=== PATIENT | male | born 1965 | race Caucasian/White ===

== ENCOUNTER 2024-09-18 00:54 | Day surgery (SDC) | payer OTHER, SELFPAY ==
--- NOTE | 2024-09-17 14:12 | P.PNAN_ITS ---
Anes - Initial Pre Proc Eval Procedure: Operation Date: 09/18/24 10:00 Proposed Procedures p Screening Colonoscopy - Wang Jenkins MD Date/Time: 09/17/24 14:12 Surgeon: Wang Jenkins MD Pre Op Diagnosis: Screening Patient Data Age: 58 Gender: M Height: Weight: Allergies Allergy/AdvReac Type Severity Reaction Status Date / Time No Known Allergies Allergy Verified 09/18/24 08:44 Home Medications ?Medication ?Instructions ?Recorded ?Confirmed ?Type rosuvastatin 10 mg tablet 10 mg PO DAILY 09/11/24 09/18/24 History Patient hx anesthesia problems: none Family hx anesthesia problems: none Results Review: All pre-operative results and documents have been reviewed as part of the pre- operative evaluation. [facility] Past Medical History Medical History (Updated 09/17/24 @ 14:12 by Heriberto Gilmore DO) Hyperlipidemia Social History Social History Living arrangements: with family Spiritual care concerns: No Anes - Eval Final PreProcedure Day of Procedure 09/17/24 14:12 Results Review: All pre-operative results and documents have been reviewed as part of the pre- operative evaluation. Informed Consent: The patient's anesthetic plan and its attendant risks and benefits were discussed with the patient/family/POA. Questions were solicited and answers provided to the satisfaction of the patient/family/POA.
--- OUTSIDE RECORDS SUMMARY | 2024-09-18 00:58 | XMS_ITS | Data Portability ---
Author Organization [facility] Address [address] [place] [address] Care Team Providers Care Search Consultant Name Role Phone YVONNE GARCIA Primary Care Provider Assessment Encounter Date Assessment Date Assessment LastModified by Organization Details LastModified Time 12/12/2023 12/12/2023 signs and symptoms of strangulation of hernia discussed he does not want to see surgeon. Obesity healthy lifestyle care instructions. Medication to help lose weight discussed he is not interested we will obtain blood work I will see him back in 6 months get records from old clinic. Not available 12/12/2023 10:23:57 06/11/2024 06/11/2024 colonoscopies last blood work reviewed chest x-ray reviewed losing weight discussed healthy lifestyle care instructions follow up with me in 4 months Not available 06/15/2024 16:05:21 Plan of Treatment Reminders Order Date Submit Date Provider Last Modified By Organization Details Last Modified Time Details Appointments ANY 15 2024 10:00A M Yvonne Garcia MD Not available Not available Not available Lab HbA1c (hemoglob in A1c), blood 2023 024 [facility], [address], [place], [address], 12/13/2023 13:13:10 lipid panel, serum 2023 024 [facility], [address], [place], [address], 12/13/2023 13:13:08 CMP, serum or plasma 2023 024 [facility], [address], [place], [address], 12/13/2023 13:13:09 CBC w/ auto diff 2023 024 [facility], [address], [place], [address], 12/13/2023 13:13:10 Referral None recorded. Procedures colonosco py screening (PROC) 2024 025 [facility], [address], [id number], [place], [address], 09/11/2024 11:00:21 Surgeries None recorded. Imaging None recorded. Medication Orders None recorded. Patient TargetsNo targets recorded. Patient Instructions Encounter Date Encounter Id Patient Instructions Last Modified By Organization Details Last Modified Time 12/12/2023 [id number] A healthy lifestyle: care instructions [email or web address] Not available 12/12/2023 10:56:30 06/11/2024 [id number] A healthy lifestyle: care instructions [email or web address] Not available 06/11/2024 15:05:24 Reason for Referral None Reported. Results Created Date Observation Date Name Description Value Unit Range Abnormal Flag Note LastModifiedBy Organization Detail LastModifiedTime 12/12/1912/13/2023 LIPID PANEL cholesterol, total 123 mg/dL 100-19 9 Not Available [facility] ([facility]) [address], [place], [address], 12/13/2023 13:13:08 12/12/1912/13/2023 LIPID PANEL triglyceride s 92 mg/dL 0-149 Not Available [facility] ([facility]) [address] [facility], [place], [address], 12/13/2023 13:13:08 12/12/19 24 12/13/2023 LIPID PANEL HDL cholesterol 45 mg/dL >39 Not Available [facility] ([facility]) [address] [facility], [place], [address], 12/13/2023 13:13:08 12/12/19 24 12/13/2023 LIPID PANEL VLDL cholesterol day 18 mg/dL 5-40 Not Available [facility] ([facility]) [address] [place], [address], 12/13/2023 13:13:08 12/12/19 24 12/13/2023 LIPID PANEL LDL chol calc ([facility]) 60 mg/dL 0-99 Not Available [facility] ([facility]) [address] [place], [address], 12/13/2023 13:13:08 12/12/19 24 12/13/2023 COMP. METAB OLIC PANEL (14) glucose 93 mg/dL 70-99 Not Available [facility] ([facility]) [address] [place], [address], 12/13/2023 13:13:09 12/12/19 24 12/13/2023 COMP. METAB OLIC PANEL (14) BUN 15 mg/dL 6-24 Not Available [facility] ([facility]) [address] [place], [address], 12/13/2023 13:13:09 12/12/19 24 12/13/2023 COMP. METAB OLIC PANEL (14) creatinine 0.97 mg/dL 0.76-1 .27 Not Available [facility] ([facility]) [address] [place], [address], 12/13/2023 13:13:09 12/12/19 24 12/13/2023 COMP. METAB OLIC PANEL (14) eGFR 90 mL/mi n/1.7 3 >59 Not Available [facility] ([facility]) [address] [place], [address], 12/13/2023 13:13:09 12/12/19 24 12/13/2023 COMP. METAB OLIC PANEL (14) BUN/creatini ne ratio 15 9-20 Not Available [facility] ([facility]) [address] [place] [place], [address], 12/13/2023 13:13:09 12/12/19 24 12/13/2023 COMP. METAB OLIC PANEL (14) sodium 142 mmol/ L 134-14 4 Not Available [facility] ([facility]) [address] [place] [place], [address], 12/13/2023 13:13:09 12/12/19 24 12/13/2023 COMP. METAB OLIC PANEL (14) potassium 4.3 mmol/ L 3.5-5. 2 Not Available [facility] ([facility]) [address] [place] [place], [address], 12/13/2023 13:13:09 12/12/19 24 12/13/2023 COMP. METAB OLIC PANEL (14) chloride 103 mmol/ L 96-106 Not Available [facility] ([facility]) [address] [facility] [place] [place], [address], 12/13/2023 13:13:09 12/12/19 24 12/13/2023 COMP. METAB OLIC PANEL (14) carbon dioxide, total 24 mmol/ L 20-29 Not Available [facility] ([facility]) [address] [facility] [place] [place], [address], 12/13/2023 13:13:09 12/12/19 24 12/13/2023 COMP. METAB OLIC PANEL (14) calcium 9.2 mg/dL 8.7-10 .2 Not Available [facility] ([facility]) [address] [facility] [place] [place], [address], 12/13/2023 13:13:09 12/12/19 24 12/13/2023 COMP. METAB OLIC PANEL (14) protein, total 7.4 g/dL 6.0-8. 5 Not Available [facility] ([facility]) [address] [facility] [place] [place], [address], 12/13/2023 13:13:09 12/12/19 24 12/13/2023 COMP. METAB OLIC PANEL (14) albumin 4.8 g/dL 3.8-4. 9 Not Available [facility] ([facility]) [address], [place], [address], 12/13/2023 13:13:09 12/12/19 24 12/13/2023 COMP. METAB OLIC PANEL (14) globulin, total 2.6 g/dL 1.5-4. 5 Not Available [facility] ([facility]) [address], [place], [address], 12/13/2023 13:13:09 12/12/19 24 12/13/2023 COMP. METAB OLIC PANEL (14) bilirubin, total 0.8 mg/dL 0.0-1. 2 Not Available [facility] ([facility]) [address], [place], [address], 12/13/2023 13:13:09 12/12/19 24 12/13/2023 COMP. METAB OLIC PANEL (14) alkaline phosphatase 89 IU/L 44-121 Not Available [facility] ([facility]) [address], [place], [address], 12/13/2023 13:13:09 12/12/19 24 12/13/2023 COMP. METAB OLIC PANEL (14) AST (SGOT) 18 IU/L 0-40 Not Available [facility] ([facility]) [address], [place], [address], 12/13/2023 13:13:09 12/12/19 24 12/13/2023 COMP. METAB OLIC PANEL (14) ALT (SGPT) 17 IU/L 0-44 Not Available [facility] ([facility]) [address], [place], [address], 12/13/2023 13:13:09 12/12/1912/13/2023 HEMOG LOBIN A1C hemoglobin A1C 5.8 % 4.8-5. 6 above high normal Predi abete s: 5.7 - 6.4 Diabe carlos manuel: >6.4 Glyce arcadio contr ol for adult s with diabe carlos manuel: <7.0 Not Available [facility] ([facility]) [address] [facility] [facility], [place], [address], 12/13/2023 13:13:09 12/12/1912/13/2023 CBC WITH DIFFE RENTI AL/PL ATELE T WBC 5.5 x10e3 /uL 3.4-10 .8 Not Available [facility] ([facility]) [address] [facility], [place], [address], 12/13/2023 13:13:10 12/12/1912/13/2023 CBC WITH DIFFE RENTI AL/PL ATELE T RBC 4.83 x10e6 /uL 4.14-5 .80 Not Available [facility] ([facility]) [address] [facility] [facility], [place], [address], 12/13/2023 13:13:10 12/12/19 24 12/13/2023 CBC WITH DIFFE RENTI AL/PL ATELE T hemoglobin 15.0 g/dL 13.0-1 7.7 Not Available [facility] ([facility]) [address] [facility] [facility], [place], [address], 12/13/2023 13:13:10 12/12/1912/13/2023 CBC WITH DIFFE RENTI AL/PL ATELE T hematocrit 45.6 % 37.5-5 1.0 Not Available [facility] ([facility]) [address] [place], [address], 12/13/2023 13:13:10 12/12/19 24 12/13/2023 CBC WITH DIFFE RENTI AL/PL ATELE T MCV 94 fL 79-97 Not Available [facility] ([facility]) [address] [facility], [place], [address], 12/13/2023 13:13:10 12/12/1912/13/2023 CBC WITH DIFFE RENTI AL/PL ATELE T MCH 31.1 pg 26.6-3 3.0 Not Available [facility] ([facility]) [address], [place], [address], 12/13/2023 13:13:10 12/12/1912/13/2023 CBC WITH DIFFE RENTI AL/PL ATELE T MCHC 32.9 g/dL 31.5-3 5.7 Not Available [facility] ([facility]) [address] [facility], [place], [address], 12/13/2023 13:13:10 12/12/1912/13/2023 CBC WITH DIFFE RENTI AL/PL ATELE T RDW 13.0 % 11.6-1 5.4 Not Available [facility] ([facility]) [address] [facility], [place], [address], 12/13/2023 13:13:10 12/12/19 24 12/13/2023 CBC WITH DIFFE RENTI AL/PL ATELE T platelets 173 x10e3 /uL 150-45 0 Not Available [facility] ([facility]) [address] [place], [address], 12/13/2023 13:13:10 12/12/1912/13/2023 CBC WITH DIFFE RENTI AL/PL ATELE T neutrophils 73 % notest ab. Not Available [facility] ([facility]) [address] [place], [address], 12/13/2023 13:13:10 12/12/19 24 12/13/2023 CBC WITH DIFFE RENTI AL/PL ATELE T lymphs 18 % notest ab. Not Available [facility] ([facility]) [address] [facility] [place], [address], 12/13/2023 13:13:10 12/12/19 24 12/13/2023 CBC WITH DIFFE RENTI AL/PL ATELE T monocytes 8 % notest ab. Not Available [facility] ([facility]) [address] [facility], [place], [address], 12/13/2023 13:13:10 12/12/1912/13/2023 CBC WITH DIFFE RENTI AL/PL ATELE T eos 1 % notest ab. Not Available [facility] ([facility]) [address] [facility], [place], [address], 12/13/2023 13:13:10 12/12/1912/13/2023 CBC WITH DIFFE RENTI AL/PL ATELE T basos 0 % notest ab. Not Available [facility] ([facility]) [address] [place], [address], 12/13/2023 13:13:10 12/12/19 24 12/13/2023 CBC WITH DIFFE RENTI AL/PL ATELE T neutrophils (absolute) 4.0 x10e3 /uL 1.4-7. 0 Not Available [facility] ([facility]) [address] [place], [address], 12/13/2023 13:13:10 12/12/1912/13/2023 CBC WITH DIFFE RENTI AL/PL ATELE T lymphs (absolute) 1.0 x10e3 /uL 0.7-3. 1 Not Available [facility] ([facility]) [address] [place], [address], 12/13/2023 13:13:10 12/12/19 24 12/13/2023 CBC WITH DIFFE RENTI AL/PL ATELE T monocytes(ab solute) 0.4 x10e3 /uL 0.1-0. 9 Not Available [facility] ([facility]) [address] [facility] [place], [address], 12/13/2023 13:13:10 12/12/19 24 12/13/2023 CBC WITH DIFFE RENTI AL/PL ATELE T eos (absolute) 0.1 x10e3 /uL 0.0-0. 4 Not Available [facility] ([facility]) [address] [facility] [address], [place], [address], 12/13/2023 13:13:10 12/12/19 24 12/13/2023 CBC WITH DIFFE RENTI AL/PL ATELE T baso (absolute) 0.0 x10e3 /uL 0.0-0. 2 Not Available [facility] ([facility]) [address] [facility], [place], [address], 12/13/2023 13:13:10 12/12/1912/13/2023 CBC WITH DIFFE RENTI AL/PL ATELE T immature granulocytes 0 % notest ab. Not Available [facility] ([facility]) [address] [facility], [place], [address], 12/13/2023 13:13:10 12/12/19 24 12/13/2023 CBC WITH DIFFE RENTI AL/PL ATELE T immature grans (abs) 0.0 x10e3 /uL 0.0-0. 1 Not Available [facility] ([facility]) [address] [facility] [facility], [place], [address], 12/13/2023 13:13:10 04/24/20 24 04/24/2024 XR, chest , 2 view No observ ation record ed. [email or web address] [facility] [address] [place], [address], 06/15/2024 16:04:42 Result Notes None recorded. Problems Name Problem SNOMED Code Status Onset Date Resolution Date Notes Provider Name and Address Organization Details Recorded Time Obesity 929920437 Active 2023 Rain Pack MA [facility], [place] - [facility] 07/24/202 4 10:21:13 Dyslipidemia 331770500 Active 2024 Yvonne Garcia MD Attn: Guadalupe mtz,[address] [facility], [place], [address], [facility] 5 16:03:31 Umbilical hernia 494419798 Active 2024 Yvonne Garcia MD Attn: Guadalupe mtz,[address], [place], [address], [facility] - [facility] 5 16:03:37 Problem Notes None recorded. Procedures Surgical History None recorded. Imaging Results Imaging Date Name Status LastModified by Organiz ation Details LastModified Time 04/24/2024 XR, chest, 2 view completed [address], [address], 06/15/2024 16:04:42 Procedure Notes None recorded. Medical Equipment None Reported. Allergies No known drug allergies Medications Name Sig Start Date Stop Date Status Note LastModified by Organization Details LastModified Time benzonatate 200 mg capsule TAKE 1 CAPSULE BY MOUTH THREE TIMES DAILY FOR 10 DAYS 06/11 completed Not Available Not Available Not Available rosuvastatin 10 mg tablet TAKE 1 TABLET BY MOUTH ONCE DAILY active Not Available Not Available No t Available Vitals Date Recorded Body height Body mass index (BMI) Body weight Heart rate Oxygen saturation Oxygen saturation in Arterial blood by Pulse oximetry Systolic blood pressure Diastolic blood pressure Provider Name and Address Organization Details Last Updated DateTime 4 162.56 cm 37.1 kg/m2 23386.6 7 g 80 /min 98 % 98 % 128 mm[Hg] 72 mm[Hg] Cheryl Gomez MA [facility] 4 10:07:07 Date Recorded Body height Body mass index (BMI) Body weight Heart rate Oxygen saturation Oxygen saturation in Arterial blood by Pulse oximetry Systolic blood pressure Diastolic blood pressure Provider Name and Address Organization Details Last Updated DateTime 5 162.56 cm 36.2 kg/m2 87926.6 3 g 86 /min 99 % 99 % 130 mm[Hg] 89 mm[Hg] China Read MA [facility] 11:54:46 Social History Question Answer Notes LastModified by Organizat ion Details LastModified Time Tobacco Smoking Status Never Smoker Cheryl Gomez MA [facility], [place] - [facility] 12/12/2023 10:03:51 Do You Have An Advance Directive? No Information n ot available 12/12/2023 What Is Your Level Of Alcohol Consumption? None Information not available 12/12/2023 Are You Blind Or Do You Have Difficulty Seeing? Yes Glasses Information n ot available 12/12/2023 What Is Your Level Of Caffeine Consumption? Heavy Information not available 12/12/2023 In The 14 Days Before Symptom Onset, Have You Had Close Contact With A Laboratory-confirm ed COVID-19 While That Case Was Ill? No Information n ot available 12/12/2023 In The 14 Days Before Symptom Onset, Have You Had Close Contact With A Person Who Is Under Investigation For COVID-19 While That Person Was Ill? No Information not available 12/12/2023 Have You Been To An Area Known To Be High Risk For COVID-19? No Information not available 12/12/2023 Are You Currently Employed? No Information not available 12/12/2023 Are You Deaf Or Do You Have Serious Difficulty Hearing? No Information not available 12/12/2023 What Type Of Diet Are You Following? REGULAR Information n ot available 12/12/2023 Are There Any Guns Present In Your Home? No Information not available 12/12/2023 What Was The Date Of Your Most Recent Tobacco Screening? 06/11/2024 [email or web address] Information not available 06/11/2024 What Is Your Relationship Status? Unknown Information not available 12/12/2023 Do You Use Your Seat Belt Or Car Seat Routinely? Yes Information not available 12/12/2023 Do You Have Smoke And Carbon Monoxide Detectors In Your Home? Yes Information not available 12/12/2023 Do You Feel Stressed (tense, Restless, Nervous, Or Anxious, Or Unable To Sleep At Night)? [id number] Information not available 12/12/2023 Do You Use Any Illicit Or Recreational Drugs? No Information not available 12/12/2023 Do You Use Sunscreen Routinely? Yes Information not available 12/12/2023 Has Tobacco Cessation Counseling Been Provided? No Information not available 12/12/2023 Do You Or Have You Ever Used Any Other Forms Of Tobacco Or Nicotine? No Information not available 12/12/2023 Sex: Male Functional Status Question Answer Note LastModified by Organization D etails LastModified Time Are you able to care for yourself? Yes Information n ot available 12/12/2023 What is your exercise level? None Information not available 12/12/2023 Mental Status None recorded. Family History Nothing Reported. Medical History Condition Response High Cholesterol Y Immunizations Vaccine Type Date Status Note Provider Nam e and Address Organization Details Recorded Time COVID-19, mRNA, LNP-S, PF, 100 mcg/0.5mL dose or 50 mcg/0.25mL dose 2 completed MARIBETH Gupta, [place] - [facility] 12/12/2023 10:21:20 COVID-19, mRNA, LNP-S, PF, 100 mcg/0.5mL dose or 50 mcg/0.25mL dose 1 completed MARIBETH Gu[place], [place] - [facility] 12/12/2023 10:21:20 COVID-19, mRNA, LNP-S, PF, 100 mcg/0.5mL dose or 50 mcg/0.25mL dose 1 completed MARIBETH Gu[place], [place] [facility] 12/12/2023 10:21:20 Influenza, split virus, trivalent, preservative 4 completed MARIBETH Gu[place] [facility] 12/12/2023 10:21:20 Influenza, split virus, quadrivalent, PF 6 completed MARIBETH Gupta, [place] [facility] 12/12/2023 10:21:20 Past Encounters Encounter ID Performer Location Encounter Start Date Encounter Closed Date Diagnosis/Indication Diagnosis SNOMED-CT Code Diagnosis ICD10 Code Diagnosis Note [id number] Yvonne Garcia MD [facility] ([facility]ult [facility]) [address] [place] [address] 12/12/2023 09:55:06 12/12/2023 10:18:29 Obesity 296029682 E66.8 Hyperlipidemia 43466445 E78.5 Diabetes m ellitus screening 147352425 Z13.1 Reducible umbilical hernia 157786630 K42.9 [id number] Yvonne Garcia MD [facility] ([facility]ult [facility]) [address] [place] [address] 06/11/2024 11:34:23 06/11/2024 12:20:10 Body mass index 30+ - obesity 897551083 Z68.36 Obesity 542535467 E66.9 Screening for malignant neoplasm of colon 446191562 Z12.11 Dyslipidemia 851766760 E 78.5 Umbilical hernia 1363988 07 K42.9 Health Concerns Section Related Observation LastModified by Organization Detai ls LastModified Time None Recorded Concern Status LastModified by Organization Details LastModified Time None Recorded Advance Directives Directive N: Payers Encounter Date Sequence Insurance Name Policy Number Policy Powell Covered Member ID Powell Member ID Guarantor Name 12/12/2023 1 *SELF PAY* Da annette Ector Kline 12/12/2023 1 [facility] (MEDICARE - MEDICAID REPLACEMENT [facility]) [id number] Eric Mtz Kline [id number] Eric Barney Kline 06/11/2024 1 [facility] (MEDICARE - MEDICAID REPLACEMENT [facility]) [id number] Eric Jim Kline [id number] Eric Barney Kline Notes Date Note Type Note Provider Name and Address Organization Details Recorded Time 12/12/2023 text/html follow up of med ical problems 1. Obesity trouble losing weight we have talked about some agents to lose weight GLP 1 agents and he is not interested at this time. Hyperlipidemia taking rosuvastatin trying to follow a low-fat diet. Says he is up-to-date on colonoscopies. Umbilical hernia nontender no problems Yvonne Garcia MD Attn: Accounting,[address] [facility], [place], [address], [facility] 01/05/2024 13:00:43 06/11/2024 text/html dyslipidemia he was taking his rosuvastatin with no side effects. Umbilical hernia no worse nontender. Obesity needs to focus on losing some weight Yvonne Garcia MD Attn: Accounting,[address] [facility], [place], [address], [facility] 06/15/2024 16:05:48
--- OUTSIDE RECORDS SUMMARY | 2024-09-18 00:58 | XMS_ITS | Data Portability ---
Author Organization [facility] [employer], Main Office Address [address] [place] [address] Care Team Providers Care Access Analyst Name Role Phone YVONNE GARCIA Primary Care Provider [phone] Assessment Encounter Date Assessment Date Assessment LastModified by Organization Details LastModified Time 11/27/2022 11/27/2022 mawv portion completed by Daphne Cadet RN under supervision of Dr Garcia Immunizations and screenings ordered provided were patient agreeable dyslipidemia blood work and rosuvastatin obesity consider agent umbilical hernia signs and symptoms of strangulation discussed see me in 6 months. [email or web address] Not available 11/27/2022 14:46:07 05/28/2023 05/28/2023 Will try to get him in [facility] 1 agent does not want to do anything about the umbilical hernia yet blood work ordered follow-up 4 months Not available 05/28/2023 14:00:22 Plan of Treatment Reminders Order Date Submit Date Provider Last Modified By Organization Details Last Modified Time Details Appointments None recorded. Lab TSH, serum or plasma 2023 [facility] (Lab), [address] [place], [address], 17:26:49 T4, free, serum 2023 024 [facility] (Lab), [address] [place], [address], 4 17:26:34 T3, free, serum or plasma 2023 024 [facility] (Lab), [address] [place], [address], 4 17:26:39 CMP, serum or plasma 2023 024 [facility] (Lab), [address] [place], [address], 4 17:20:14 lipid panel, serum 2023 024 [facility] (Lab), [address] [place], [address], 4 17:20:23 CBC w/ auto diff 2023 024 [facility] (Lab), [address] [place], [address], 4 16:12:31 PSA, serum or plasma 2022 023 [facility] (Lab), [address] [place], [address], 4 21:12:36 lipid panel, serum 2022 023 [facility] (Lab), [address] [place], [address], 3 17:40:29 CMP, serum or plasma 2022 023 [facility] (Lab), [address] [place], [address], 3 17:40:35 Referral None recorded. Procedures None recorded. Surgeries None recorded. Imaging None recorded. Medication Orders Wegovy 0.25 mg/0.5 mL subcutaneou s pen injector 2023 024 [id number] [id number], [id number] [facility] [place], [place], [id number], 4 13:10:59 Patient TargetsNo targets recorded. Patient Instructions Encounter Date Encounter Id Patient Instructions Last Modified By Organization Details Last Modified Time 11/27/2022 [id number] dementia rating scale-2* [id number] Not available 11/27/2022 14:44:35 alcohol misuse* Not available 11/27/2022 14:44:35 depression screening* Not available 11/27/2022 14:44:35 multi-dimensiona l health assessment questionnaire* Not available 11/27/2022 14:44:35 advance directiv es: care instructions Not available 11/27/2022 14:44:35 Personalized Hea lth Plan and Screening Recommendations Advance Directives - Do you have one? No Advance Directives - Do we have your advance directive on file in your health record? Primary Prevention/Interven tion (prevents or decreases the chance of common diseases from occurring) Smoking Risk: Non Smoker Alcohol Misuse Screening: Negative Weight: Appropriate Overwei ght continue your current weight loss efforts try to lose 5% of your body weight try to lose 10% of your body weight try to lose 15% of your body weight Physical activity: Appropriate physical activity minimum of 10-20 minutes of activity that causes mild breathlessness/day minimum of 20-30 minutes activity that causes mild breathlessness/day Nutrition: Good Average Refer to attached handout Heart-Healthy Diet: After Your Visit Fall Risk (screened today): Low Refer to attached handout Preventing Falls: After your Visit Vaccines Pneumococcal: Influenza: Your next one in the fall of this year Chronic Disease Risks Stroke: Low Risk I have no recommendations Heart Attack: Low risk Intermediate Risk I have no recommendations Act donnie diagnosis, Continue current treatment plan Clogging of the Arteries: Low risk Intermediate Risk I have no recommendations Act donnie diagnosis, Continue current treatment plan Diabetes: Low Risk I have no recommendations Secondary Prevention/Interven tion (detects treatable diseases before they may cause symptoms, disability, or ) Prostate Cancer Screening: No digital rectal exam screening necessary Colon Cancer Screening: Colonoscopy Date Screening Last Performed: Eye Disease Screening: Dementia Risk: Low I have no recommendations Depression Screening: Negative [email or web address] Not available 11/27/2022 14:30:15 Reason for Referral None Reported. Results Created Date Observation Date Name Description Value Unit Range Abnormal Flag Note LastModifiedBy Organization Detail LastModifiedTime 05/02/20 21 05/02/2021 LIPID PANEL cholesterol 129 mg/dL 140-19 9 low NIH CHELI NSUS RECOM MENDA TION FOR BALDEMAR STERO L: ADULT CHILD LOW RISK: <200 <170 BORDE RLINE : <200- 239 ----- HIGH RISK: >240 >200 Not Available [facility] (Lab) [address] [place], [address], 05/02/2021 14:44:32 05/02/20 21 05/02/2021 LIPID PANEL triglyceride s 108 mg/dL 0-150 NIH CHELI NSUS REPOR T RECOM MENDA TION FOR TRIGL YCERI JUAQUIN: ADULT CHILD LOW RISK: <150 ----- BODER LINE: 150-1 99 ----- HIGH RISK: >200 ----- Not Available [facility] (Lab) [address] [place], [address], 05/02/2021 14:44:32 05/02/20 21 05/02/2021 LIPID PANEL HDL cholesterol 49 mg/dL 40- Not Available [facility] (Lab) [address] [place], [address], 05/02/2021 14:44:32 05/02/20 21 05/02/2021 LIPID PANEL LDL cholesterol, calculated 58 mg/dL 0-130 NIH CHELI NSUS REPOR T RECOM MENDA TIONS FOR LDL: ADULT CHILD LOW RISK <130 <110 (OPTI MAL LDL) <100 ----- BORDE RLINE : 130-1 59 ----- HIGH RISK: >160 >130 A TRIGL YCERI DE RESUL T >400 INVAL IDATE S THE CALCU LATIO N FOR LDL FRACT IONAT ION - THE LDL RESUL T WILL NOT BE REPOR AMARILYS. Not Available [facility] (Lab) [address] [place], [address], 05/02/2021 14:44:32 05/02/20 21 05/02/2021 COMPR EHENS DONNIE METAB OLIC PANEL sodium 139 mmol/ L 137-14 5 Not Available [facility] (Lab) [address] [place], [address], 05/02/2021 14:44:25 05/02/20 21 05/02/2021 COMPR EHENS DONNIE METAB OLIC PANEL potassium 4.5 mmol/ L 3.5-5. 1 Not Available [facility] (Lab) [address] [place], [address], 05/02/2021 14:44:25 05/02/20 21 05/02/2021 COMPR EHENS DONNIE METAB OLIC PANEL chloride 105 mmol/ L 98-107 Not Available [facility] (Lab) [address] [place], [address], 05/02/2021 14:44:25 05/02/20 21 05/02/2021 COMPR EHENS DONNIE METAB OLIC PANEL carbon dioxide 29 mmol/ L 22-30 Not Available [facility] (Lab) [address] [place], [address], 05/02/2021 14:44:25 05/02/20 21 05/02/2021 COMPR EHENS DONNIE METAB OLIC PANEL agap 9.5 mmol/ L 14-22 low Not Available [facility] (Lab) [address] [place], [address], 05/02/2021 14:44:25 05/02/20 21 05/02/2021 COMPR EHENS DONNIE METAB OLIC PANEL glucose 102 mg/dL 70-99 high Not Available [facility] (Lab) [address] [place], [address], 05/02/2021 14:44:25 05/02/20 21 05/02/2021 COMPR EHENS DONNIE METAB OLIC PANEL BUN 14 mg/dL 8-19 Not Available [facility] (Lab) [address] [place], [address], 05/02/2021 14:44:25 05/02/20 21 05/02/2021 COMPR EHENS DONNIE METAB OLIC PANEL creatinine 0.88 mg/dL 0.66-1 .25 Not Available [facility] (Lab) [address] [place], [address], 05/02/2021 14:44:25 05/02/20 21 05/02/2021 COMPR EHENS DONNIE METAB OLIC PANEL GFR >60 Refer ence Range : [place] GFR Healt hy Adult : >60 mL/mi n/1.7 3 m2 Chron ic Kidne y Disea se: 15-60 mL/mi n/1.7 3 m2 Kidne y Failu re: <15/m L/min /1.73 m2 www.n iddk. [facility].g ov The MDRD study equat ion has not been valid ated in child areli <18 years of age; pregn ant women ; the elder ly >85 years of age; or in some racia l or ethni c subgr oups, such as Hisok nics. Outsi de the valid ated lizzy eters , estim ated GFR is less accur ate, requi ring clini day judgm ent on a case- by-ca se basis . Clini day inter preta tion for other races and ages must be made by the clini coni. The MDRD study equat ion has not been valid ated for the evalu ation of serum creat inine relat ed to nutri adriana l statu s or medic ation usage . For perso ns <18 years of age, a pedia tric GFR calcu lator is avail able on the F websi te: https ://ww w.kid milton.o rg/pr ofess ional s/kdo qi/gf r_cal culat or Not Available [facility] (Lab) [address] [place], [address], 05/02/2021 14:44:25 05/02/20 21 05/02/2021 COMPR EHENS DONNIE METAB OLIC PANEL alkaline phosphatase 84 U/L 38-126 Not Available [facility] (Lab) [address] [place], [address], 05/02/2021 14:44:25 05/02/20 21 05/02/2021 COMPR EHENS DONNIE METAB OLIC PANEL alanine aminotransfe rase 21 U/L 0-50 Not Available [facility] (Lab) [address] [place], [address], 05/02/2021 14:44:25 05/02/20 21 05/02/2021 COMPR EHENS DONNIE METAB OLIC PANEL aspartate aminotransfe rase 27 U/L 15-46 Not Available [facility] (Lab) [address] [place], [address], 05/02/2021 14:44:25 05/02/20 21 05/02/2021 COMPR EHENS DONNIE METAB OLIC PANEL bilirubin, total 0.80 mg/dL 0.20-1 .30 Not Available [facility] (Lab) [address] [place], [address], 05/02/2021 14:44:25 05/02/20 21 05/02/2021 COMPR EHENS DONNIE METAB OLIC PANEL calcium 8.7 mg/dL 8.4-10 .2 Not Available [facility] (Lab) [address] [place], [address], 05/02/2021 14:44:25 05/02/20 21 05/02/2021 COMPR EHENS DONNIE METAB OLIC PANEL total protein 6.9 g/dL 6.3-8. 2 Not Available [facility] (Lab) [address] [place], [address], 05/02/2021 14:44:25 05/02/20 21 05/02/2021 COMPR EHENS DONNIE METAB OLIC PANEL albumin 4.4 g/dL 3.4-5. 0 Not Available [facility] (Lab) [address] [place], [address], 05/02/2021 14:44:25 05/02/20 21 05/02/2021 COMPR EHENS DONNIE METAB OLIC PANEL globulin 2.5 g/dL 2.6-4. 2 low Not Available [facility] (Lab) [address] [place], [address], 05/02/2021 14:44:25 05/02/20 21 05/02/2021 COMPR EHENS DONNIE METAB OLIC PANEL A/G ratio 1.8 ratio 1.0-2. 0 Not Available [facility] (Lab) [address] [place], [address], 05/02/2021 14:44:25 05/02/20 21 05/02/2021 CBC/C OMPLE TE BLD COUNT W/DIF F white blood cells 5.5 x10'3 /uL 4.2-10 .8 Not Available [facility] (Lab) [address] [place], [address], 05/02/2021 14:36:51 05/02/20 21 05/02/2021 CBC/C OMPLE TE BLD COUNT W/DIF F red blood cells 5.10 x10'6 /uL 4.10-5 .80 Not Available [facility] (Lab) [address] [place], [address], 05/02/2021 14:36:51 05/02/20 21 05/02/2021 CBC/C OMPLE TE BLD COUNT W/DIF F hemoglobin 15.7 g/dL 13.2-1 7.0 Not Available [facility] (Lab) [address] [place], [address], 05/02/2021 14:36:51 05/02/20 21 05/02/2021 CBC/C OMPLE TE BLD COUNT W/DIF F hematocrit 48.0 % 39.3-5 0.0 Not Available [facility] (Lab) [address] [place], [address], 05/02/2021 14:36:51 05/02/20 21 05/02/2021 CBC/C OMPLE TE BLD COUNT W/DIF F mean red cell volume 94.1 fL 80.0-9 7.0 Not Available [facility] (Lab) [address] [place], [address], 05/02/2021 14:36:51 05/02/20 21 05/02/2021 CBC/C OMPLE TE BLD COUNT W/DIF F mean red cell hemoglobin 30.8 pg 27.0-3 3.0 Not Available [facility] (Lab) [address] [place], [address], 05/02/2021 14:36:51 05/02/20 21 05/02/2021 CBC/C OMPLE TE BLD COUNT W/DIF F mean RBC HGB concentratio n 32.7 g/dL 31.0-3 6.0 Not Available [facility] (Lab) [address] [place], [address], 05/02/2021 14:36:51 05/02/20 21 05/02/2021 CBC/C OMPLE TE BLD COUNT W/DIF F red cell distribution width 12.3 % 11.8-1 5.5 Not Available [facility] (Lab) [address] [place], [address], 05/02/2021 14:36:51 05/02/20 21 05/02/2021 CBC/C OMPLE TE BLD COUNT W/DIF F platelets 196 x10'3 /uL 150-40 0 Not Available [facility] (Lab) [address] [place], [address], 05/02/2021 14:36:51 05/02/20 21 05/02/2021 CBC/C OMPLE TE BLD COUNT W/DIF F mean platelet volume 9.6 fL 9.0-12 .4 Not Available [facility] (Lab) [address] [place], [address], 05/02/2021 14:36:51 05/02/20 21 05/02/2021 CBC/C OMPLE TE BLD COUNT W/DIF F neutrophils 73.6 % 39.0-7 2.0 high Not Available [facility] (Lab) [address] [place], [address], 05/02/2021 14:36:51 05/02/20 21 05/02/2021 CBC/C OMPLE TE BLD COUNT W/DIF F lymphocytes 17.2 % 16.0-4 7.0 Not Available [facility] (Lab) [address] [place], [address], 05/02/2021 14:36:51 05/02/20 21 05/02/2021 CBC/C OMPLE TE BLD COUNT W/DIF F monocytes 7.7 % 5.0-12 .0 Not Available [facility] (Lab) [address] [place], [address], 05/02/2021 14:36:51 05/02/20 21 05/02/2021 CBC/C OMPLE TE BLD COUNT W/DIF F eosinophils 0.7 % 1.0-7. 0 low Not Available [facility] (Lab) [address] [place], [address], 05/02/2021 14:36:51 05/02/20 21 05/02/2021 CBC/C OMPLE TE BLD COUNT W/DIF F basophils 0.6 % 0.0-2. 0 Not Available [facility] (Lab) [address] [place], [address], 05/02/2021 14:36:51 05/02/20 21 05/02/2021 CBC/C OMPLE TE BLD COUNT W/DIF F immature granulocytes 0.2 % 0.00-0 .50 Not Available [facility] (Lab) [address] [place], [address], 05/02/2021 14:36:51 05/02/2005/02/2021 CBC/C OMPLE TE BLD COUNT W/DIF F neutrophils, absolute count 4.01 x10'3 /uL 1.5-8. 0 Not Available [facility] (Lab) [address] [place], [address], 05/02/2021 14:36:51 05/02/20 21 05/02/2021 CBC/C OMPLE TE BLD COUNT W/DIF F lymphocytes, absolute count 0.94 x10'3 /uL 1.07-3 .43 low Not Available [facility] (Lab) [address] [place], [address], 05/02/2021 14:36:51 05/02/20 21 05/02/2021 CBC/C OMPLE TE BLD COUNT W/DIF F monocytes, absolute count 0.42 x10'3 /uL 0.29-0 .99 Not Available [facility] (Lab) [address] [place], [address], 05/02/2021 14:36:51 05/02/20 21 05/02/2021 CBC/C OMPLE TE BLD COUNT W/DIF F eosinophils, absolute count 0.04 x10'3 /uL 0.02-0 .53 Not Available [facility] (Lab) [address] [place], [address], 05/02/2021 14:36:51 05/02/20 21 05/02/2021 CBC/C OMPLE TE BLD COUNT W/DIF F basophils, absolute count 0.03 x10'3 /uL 0.01-0 .08 Not Available [facility] (Lab) [address] [place], [address], 05/02/2021 14:36:51 05/02/20 21 05/02/2021 CBC/C OMPLE TE BLD COUNT W/DIF F immature granulocytes ,absolute 0.01 x10'3 /uL 0.00-0 .05 Not Available [facility] (Lab) [address] [place], [address], 05/02/2021 14:36:51 05/02/20 21 05/02/2021 CBC/C OMPLE TE BLD COUNT W/DIF F nucleated red blood cells 0.0 % -0 Not Available [facility] (Lab) [address] [place], [address], 05/02/2021 14:36:51 05/02/20 21 05/02/2021 CBC/C OMPLE TE BLD COUNT W/DIF F NRBC# 0.00 x10'3 /uL Not Available [facility] (Lab) [address] [place], [address], 05/02/2021 14:36:51 11/08/19 22 11/07/2021 PSA SCREE N PSA medicare screen 0.75 NG/mL 0.00-4 .00 Not Available [facility] (Lab) [address] [place], [address], 11/07/2021 17:50:25 11/08/19 22 11/07/2021 LIPID PANEL cholesterol 110 mg/dL 140-19 9 low NIH CHELI NSUS RECOM MENDA TION FOR BALDEMAR STERO L: ADULT CHILD LOW RISK: <200 <170 BORDE RLINE : <200- 239 ----- HIGH RISK: >240 >200 Not Available [facility] (Lab) [address] [place], [address], 11/07/2021 16:38:38 11/08/19 22 11/07/2021 LIPID PANEL triglyceride s 96 mg/dL 0-150 NIH CHELI NSUS REPOR T RECOM MENDA TION FOR TRIGL YCERI JUAQUIN: ADULT CHILD LOW RISK: <150 ----- BODER LINE: 150-1 99 ----- HIGH RISK: >200 ----- Not Available [facility] (Lab) [address] [place], [address], 11/07/2021 16:38:38 11/08/19 22 11/07/2021 LIPID PANEL HDL cholesterol 43 mg/dL 40- Not Available [facility] (Lab) [address] [place], [address], 11/07/2021 16:38:38 11/08/19 22 11/07/2021 LIPID PANEL LDL cholesterol, calculated 48 mg/dL 0-130 NIH CHELI NSUS REPOR T RECOM MENDA TIONS FOR LDL: ADULT CHILD LOW RISK <130 <110 (OPTI MAL LDL) <100 ----- BORDE RLINE : 130-1 59 ----- HIGH RISK: >160 >130 A TRIGL YCERI DE RESUL T >400 INVAL IDATE S THE CALCU LATIO N FOR LDL FRACT IONAT ION - THE LDL RESUL T WILL NOT BE REPOR AMARILYS. Not Available [facility] (Lab) [address] [place], [address], 11/07/2021 16:38:38 11/08/19 22 11/07/2021 COMPR EHENS DONNIE METAB OLIC PANEL GFR >60 Refer ence Range : [place] GFR Healt hy Adult : >60 mL/mi n/1.7 3 m2 Chron ic Kidne y Disea se: 15-60 mL/mi n/1.7 3 m2 Kidne y Failu re: <15/m L/min /1.73 m2 www.n iddk. nih.g ov The MDRD study equat ion has not been valid ated in child areli <18 years of age; pregn ant women ; the elder ly >85 years of age; or in some racia l or ethni c subgr oups, such as Hispa nics. Outsi de the valid ated lizzy eters , estim ated GFR is less accur ate, requi ring clini day judgm ent on a case- by-ca se basis . Clini day inter preta tion for other races and ages must be made by the clini coni. The MDRD study equat ion has not been valid ated for the evalu ation of serum creat inine relat ed to nutri adriana l statu s or medic ation usage . For perso ns <18 years of age, a pedia tric GFR calcu lator is avail able on the [facility] websi te: https ://ww w.kid [place].o rg/pr ofess ional s/kdo qi/gf r_cal culat or Not Available [facility] (Lab) [address] [place], [address], 11/07/2021 16:38:35 11/08/19 22 11/07/2021 COMPR EHENS DONNIE METAB OLIC PANEL alkaline phosphatase 74 U/L 38-126 Not Available [facility] (Lab) [address] [place], [address], 11/07/2021 16:38:35 11/08/19 22 11/07/2021 COMPR EHENS DONNIE METAB OLIC PANEL alanine aminotransfe rase 18 U/L 0-50 Not Available [facility] (Lab) [address] [place], [address], 11/07/2021 16:38:35 11/08/19 22 11/07/2021 COMPR EHENS DONNIE METAB OLIC PANEL aspartate aminotransfe rase 24 U/L 15-46 Not Available [facility] (Lab) [address] [place], [address], 11/07/2021 16:38:35 11/08/19 22 11/07/2021 COMPR EHENS DONNIE METAB OLIC PANEL bilirubin, total 0.90 mg/dL 0.20-1 .30 Not Available [facility] (Lab) [address] [place], [address], 11/07/2021 16:38:35 11/08/19 22 11/07/2021 COMPR EHENS DONNIE METAB OLIC PANEL calcium 8.9 mg/dL 8.4-10 .2 Not Available [facility] (Lab) [address] [place], [address], 11/07/2021 16:38:35 11/08/19 22 11/07/2021 COMPR EHENS DONNIE METAB OLIC PANEL total protein 7.3 g/dL 6.3-8. 2 Not Available [facility] (Lab) [address] [place], [address], 11/07/2021 16:38:35 11/08/19 22 11/07/2021 COMPR EHENS DONNIE METAB OLIC PANEL albumin 4.5 g/dL 3.4-5. 0 Not Available [facility] (Lab) [address] [place], [address], 11/07/2021 16:38:35 11/08/19 22 11/07/2021 COMPR EHENS DONNIE METAB OLIC PANEL globulin 2.8 g/dL 2.6-4. 2 Not Available [facility] (Lab) [address] [place], [address], 11/07/2021 16:38:35 11/08/19 22 11/07/2021 COMPR EHENS DONNIE METAB OLIC PANEL A/G ratio 1.6 ratio 1.0-2. 0 Not Available [facility] (Lab) [address] [place], [address], 11/07/2021 16:38:35 11/08/19 22 11/07/2021 COMPR EHENS DONNIE METAB OLIC PANEL sodium 141 mmol/ L 137-14 5 Not Available [facility] (Lab) [address] [place], [address], 11/07/2021 16:38:35 11/08/19 22 11/07/2021 COMPR EHENS DONNIE METAB OLIC PANEL potassium 4.0 mmol/ L 3.5-5. 1 Not Available [facility] (Lab) [address] [place], [address], 11/07/2021 16:38:35 11/08/19 22 11/07/2021 COMPR EHENS DONNIE METAB OLIC PANEL chloride 104 mmol/ L 98-107 Not Available [facility] (Lab) [address] [place], [address], 11/07/2021 16:38:35 11/08/19 22 11/07/2021 COMPR EHENS DONNIE METAB OLIC PANEL carbon dioxide 26 mmol/ L 22-30 Not Available [facility] (Lab) [address] [place], [address], 11/07/2021 16:38:35 11/08/19 22 11/07/2021 COMPR EHENS DONNIE METAB OLIC PANEL anion gap 15.0 mmol/ L 14-22 Not Available [facility] (Lab) [address] [place], [address], 11/07/2021 16:38:35 11/08/19 22 11/07/2021 COMPR EHENS DONNIE METAB OLIC PANEL glucose 99 mg/dL 70-99 Not Available [facility] (Lab) [address] [place], [address], 11/07/2021 16:38:35 11/08/19 22 11/07/2021 COMPR EHENS DONNIE METAB OLIC PANEL BUN 12 mg/dL 8-19 Not Available [facility] (Lab) [address] [place], [address], 11/07/2021 16:38:35 11/08/19 22 11/07/2021 COMPR EHENS DONNIE METAB OLIC PANEL creatinine 0.94 mg/dL 0.66-1 .25 Not Available [facility] (Lab) [address] [place], [address], 11/07/2021 16:38:35 04/11/20 22 04/11/2022 SARS- COV-2 RNA(C OVID1 9),RT -PCR sars-cov-2 RNA(covid19) ,RT-PCR positi ve abnormal This test has been autho rized by the FDA under an Emerg ency Use Autho rizat ion (EUA) for use by autho rized labor atori es. Negat donnie resul ts do not precl ude SARS- CoV-2 and shoul d not be used as the sole basis for treat ment or other patie nt manag ement decis ions. Test resul ts shoul d be corre lated with the clini day histo ry, epide miolo gical data, and other data avail able to the clini coni evalu ating the patie nt. Kyle patel w the Fact Sheet s for healt h care provi ders and patie nts at the [facility] carlos manuel: https ://[employer]IMASTE .gov/ media /1363 12/do wnloa d https ://[employer] .gov/ media /1363 13/do wnloa d https ://[employer] .gov/ media /1421 92/do wnloa d https ://[employer] .gov/ media /1421 91/do wnloa d Kimberlyo rylan y: Real- Time RT-PC R Not Available [facility] (Lab) [address] [place], [address], 04/11/2022 11:33:53 04/11/20 22 04/11/2022 INFLU ETTA A/B ANTIG EN RAPID flu A negati ve negati ve Not Available [facility] (Lab) [address] [place], [address], 04/11/2022 11:45:03 04/11/20 22 04/11/2022 INFLU ETTA A/B ANTIG EN RAPID flu B negati ve negati ve THIS TEST CAN NOT DISTI NGUIS H INFLU ETTA A VIRUS SUBTY PES. ALSO, KYLE E NOTE THAT A NEGAT DONNIE RESUL T DOES NOT EXCLU DE INFLU ETTA VIRUS INFEC TION. IF MORE CONCL USIVE TESTI NG IS DOLLY ED, BRYAN W-UP CONFI RMATO RY TESTI NG WITH RT-PC R IS CAM[place]LE WIL[place]URN. 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 Not Available [facility] (Lab) [address] [place], [address], 04/11/2022 11:45:03 11/28/19 23 11/27/2022 LIPID PANEL cholesterol 104 mg/dL 140-19 9 low NIH CHELI NSUS RECOM MENDA TION FOR BALDEMAR STERO L: ADULT CHILD LOW RISK: <200 <170 BORDE RLINE : <200- 239 ----- HIGH RISK: >240 >200 Not Available [facility] (Lab) [address] [place], [address], 11/27/2022 17:40:29 11/28/19 23 11/27/2022 LIPID PANEL triglyceride s 116 mg/dL 0-150 NIH CHELI NSUS REPOR T RECOM MENDA TION FOR TRIGL YCERI JUAQUIN: ADULT CHILD LOW RISK: <150 ----- BODER LINE: 150-1 99 ----- HIGH RISK: >200 ----- Not Available [facility] (Lab) [address] [place], [address], 11/27/2022 17:40:29 11/28/19 23 11/27/2022 LIPID PANEL HDL cholesterol 46 mg/dL 40- Not Available [facility] (Lab) [address] [place], [address], 11/27/2022 17:40:29 11/28/19 23 11/27/2022 LIPID PANEL LDL cholesterol, calculated 35 mg/dL 0-130 NIH CHELI NSUS REPOR T RECOM MENDA TIONS FOR LDL: ADULT CHILD LOW RISK <130 <110 (OPTI MAL LDL) <100 ----- BORDE RLINE : 130-1 59 ----- HIGH RISK: >160 >130 A TRIGL YCERI DE RESUL T >400 INVAL IDATE S THE CALCU LATIO N FOR LDL FRACT IONAT ION - THE LDL RESUL T WILL NOT BE REPOR AMARILYS. Not Available [facility] (Lab) [address] [place], [address], 11/27/2022 17:40:29 11/28/19 23 11/27/2022 COMPR EHENS DONNIE METAB OLIC PANEL sodium 141 mmol/ L 137-14 5 Not Available [facility] (Lab) [address] [place], [address], 11/27/2022 17:40:35 11/28/19 23 11/27/2022 COMPR EHENS DONNIE METAB OLIC PANEL potassium 4.4 mmol/ L 3.5-5. 1 Not Available [facility] (Lab) [address] [place], [address], 11/27/2022 17:40:35 11/28/19 23 11/27/2022 COMPR EHENS DONNIE METAB OLIC PANEL chloride 103 mmol/ L 98-107 Not Available [facility] (Lab) [address] [place], [address], 11/27/2022 17:40:35 11/28/19 23 11/27/2022 COMPR EHENS DONNIE METAB OLIC PANEL carbon dioxide 20 mmol/ L 22-30 low Not Available [facility] (Lab) [address] [place], [address], 11/27/2022 17:40:35 11/28/19 23 11/27/2022 COMPR EHENS DONNIE METAB OLIC PANEL anion gap 22.4 mmol/ L 14-22 high Not Available [facility] (Lab) [address] [place], [address], 11/27/2022 17:40:35 11/28/19 23 11/27/2022 COMPR EHENS DONNIE METAB OLIC PANEL glucose 87 mg/dL 70-99 Not Available [facility] (Lab) [address] [place], [address], 11/27/2022 17:40:35 11/28/19 23 11/27/2022 COMPR EHENS DONNIE METAB OLIC PANEL BUN 11 mg/dL 8-19 Not Available [facility] (Lab) [address] [place], [address], 11/27/2022 17:40:35 11/28/19 23 11/27/2022 COMPR EHENS DONNIE METAB OLIC PANEL creatinine 0.81 mg/dL 0.66-1 .25 Not Available [facility] (Lab) [address] [place], [address], 11/27/2022 17:40:35 11/28/19 23 11/27/2022 COMPR EHENS DONNIE METAB OLIC PANEL GFR >60 Refer ence Range : [place] GFR Healt hy Adult : >60 mL/mi n/1.7 3 m2 Chron ic Kidne y Disea se: 15-60 mL/mi n/1.7 3 m2 Kidne y Failu re: <15/m L/min /1.73 m2 www.n iddk. nih.g ov The MDRD study equat ion has not been valid ated in child areli <18 years of age; pregn ant women ; the elder ly >85 years of age; or in some racia l or ethni c subgr oups, such as Hispa nics. Outsi de the valid ated lizzy eters , estim ated GFR is less accur ate, requi ring clini day judgm ent on a case- by-ca se basis . Clini day inter preta tion for other races and ages must be made by the clini coni. The MDRD study equat ion has not been valid ated for the evalu ation of serum creat inine relat ed to nutri adriana l statu s or medic ation usage . For perso ns <18 years of age, a pedia tric GFR calcu lator is avail able on the [facility] websi te: https :[email or web address] w.katalina [email or web address] rg/pr ofess ional s/kdo qi/gf r_cal culat or Not Available [facility] (Lab) [address] [place], [address], 11/27/2022 17:40:35 11/28/19 23 11/27/2022 COMPR EHENS DONNIE METAB OLIC PANEL alkaline phosphatase 60 U/L 38-126 Not Available [facility] (Lab) [address] [place], [address], 11/27/2022 17:40:35 11/28/19 23 11/27/2022 COMPR EHENS DONNIE METAB OLIC PANEL alanine aminotransfe rase 22 U/L 0-50 Not Available [facility] (Lab) [address] [place], [address], 11/27/2022 17:40:35 11/28/19 23 11/27/2022 COMPR EHENS DONNIE METAB OLIC PANEL aspartate aminotransfe rase 21 U/L 15-46 Not Available [facility] (Lab) [address] [place], [address], 11/27/2022 17:40:35 11/28/19 23 11/27/2022 COMPR EHENS DONNIE METAB OLIC PANEL bilirubin, total 0.70 mg/dL 0.20-1 .30 Not Available [facility] (Lab) [address] [place], [address], 11/27/2022 17:40:35 11/28/19 23 11/27/2022 COMPR EHENS DONNIE METAB OLIC PANEL calcium 8.4 mg/dL 8.4-10 .2 Not Available [facility] (Lab) [address] [place], [address], 11/27/2022 17:40:35 11/28/19 23 11/27/2022 COMPR EHENS DONNIE METAB OLIC PANEL total protein 7.2 g/dL 6.3-8. 2 Not Available [facility] (Lab) [address] [place], [address], 11/27/2022 17:40:35 11/28/19 23 11/27/2022 COMPR EHENS DONNIE METAB OLIC PANEL albumin 4.4 g/dL 3.4-5. 0 Not Available [facility] (Lab) [address] [place], [address], 11/27/2022 17:40:35 11/28/19 23 11/27/2022 COMPR EHENS DONNIE METAB OLIC PANEL globulin 2.8 g/dL 2.6-4. 2 Not Available [facility] (Lab) [address] [place], [address], 11/27/2022 17:40:35 11/28/19 23 11/27/2022 COMPR EHENS DONNIE METAB OLIC PANEL A/G ratio 1.6 ratio 1.0-2. 0 Not Available [facility] (Lab) [address] [place], [address], 11/27/2022 17:40:35 11/28/19 23 11/27/2022 PSA SCREE N PSA medicare screen 0.73 NG/mL 0.00-4 .00 Not Available [facility] (Lab) [address] [place], [address], 11/27/2022 18:15:56 05/28/19 24 05/28/2023 CBC/C OMPLE TE BLD COUNT W/DIF F white blood cells 5.0 x10'3 /uL 4.2-10 .8 Not Available [facility] (Lab) [address] [place], [address], 05/28/2023 16:12:31 05/28/19 24 05/28/2023 CBC/C OMPLE TE BLD COUNT W/DIF F red blood cells 4.94 x10'6 /uL 4.10-5 .80 Not Available [facility] (Lab) [address] [place], [address], 05/28/2023 16:12:31 05/28/19 24 05/28/2023 CBC/C OMPLE TE BLD COUNT W/DIF F hemoglobin 15.5 g/dL 13.2-1 7.0 Not Available [facility] (Lab) [address] [place], [address], 05/28/2023 16:12:31 05/28/19 24 05/28/2023 CBC/C OMPLE TE BLD COUNT W/DIF F hematocrit 46.2 % 39.3-5 0.0 Not Available [facility] (Lab) [address] [place], [address], 05/28/2023 16:12:31 05/28/19 24 05/28/2023 CBC/C OMPLE TE BLD COUNT W/DIF F mean red cell volume 93.5 fL 80.0-9 7.0 Not Available [facility] (Lab) [address] [place], [address], 05/28/2023 16:12:31 05/28/19 24 05/28/2023 CBC/C OMPLE TE BLD COUNT W/DIF F mean red cell hemoglobin 31.4 pg 27.0-3 3.0 Not Available [facility] (Lab) [address] [place], [address], 05/28/2023 16:12:31 05/28/19 24 05/28/2023 CBC/C OMPLE TE BLD COUNT W/DIF F mean RBC HGB concentratio n 33.5 g/dL 31.0-3 6.0 Not Available [facility] (Lab) [address] [place], [address], 05/28/2023 16:12:31 05/28/19 24 05/28/2023 CBC/C OMPLE TE BLD COUNT W/DIF F red cell distribution width 12.4 % 11.8-1 5.5 Not Available [facility] (Lab) [address] [place], [address], 05/28/2023 16:12:31 05/28/19 24 05/28/2023 CBC/C OMPLE TE BLD COUNT W/DIF F platelets 185 x10'3 /uL 150-40 0 Not Available [facility] (Lab) [address] [place], [address], 05/28/2023 16:12:31 05/28/19 24 05/28/2023 CBC/C OMPLE TE BLD COUNT W/DIF F mean platelet volume 9.6 fL 9.0-12 .4 Not Available [facility] (Lab) [address] [place], [address], 05/28/2023 16:12:31 05/28/19 24 05/28/2023 CBC/C OMPLE TE BLD COUNT W/DIF F neutrophils 74.2 % 39.0-7 2.0 high Not Available [facility] (Lab) [address] [place], [address], 05/28/2023 16:12:31 05/28/19 24 05/28/2023 CBC/C OMPLE TE BLD COUNT W/DIF F lymphocytes 17.3 % 16.0-4 7.0 Not Available [facility] (Lab) [address] [place], [address], 05/28/2023 16:12:31 05/28/19 24 05/28/2023 CBC/C OMPLE TE BLD COUNT W/DIF F monocytes 7.1 % 5.0-12 .0 Not Available [facility] (Lab) [address] [place], [address], 05/28/2023 16:12:31 05/28/19 24 05/28/2023 CBC/C OMPLE TE BLD COUNT W/DIF F eosinophils 0.6 % 1.0-7. 0 low Not Available [facility] (Lab) [address] [place], [address], 05/28/2023 16:12:31 05/28/19 24 05/28/2023 CBC/C OMPLE TE BLD COUNT W/DIF F basophils 0.4 % 0.0-2. 0 Not Available [facility] (Lab) [address] [place], [address], 05/28/2023 16:12:31 05/28/19 24 05/28/2023 CBC/C OMPLE TE BLD COUNT W/DIF F immature granulocytes 0.4 % 0.00-0 .50 Not Available [facility] (Lab) [address] [place], [address], 05/28/2023 16:12:31 05/28/19 24 05/28/2023 CBC/C OMPLE TE BLD COUNT W/DIF F neutrophils, absolute count 3.68 x10'3 /uL 1.5-8. 0 Not Available [facility] (Lab) [address] [place], [address], 05/28/2023 16:12:31 05/28/19 24 05/28/2023 CBC/C OMPLE TE BLD COUNT W/DIF F lymphocytes, absolute count 0.86 x10'3 /uL 1.07-3 .43 low Not Available [facility] (Lab) [address] [place], [address], 05/28/2023 16:12:31 05/28/19 24 05/28/2023 CBC/C OMPLE TE BLD COUNT W/DIF F monocytes, absolute count 0.35 x10'3 /uL 0.29-0 .99 Not Available [facility] (Lab) [address] [place], [address], 05/28/2023 16:12:31 05/28/19 24 05/28/2023 CBC/C OMPLE TE BLD COUNT W/DIF F eosinophils, absolute count 0.03 x10'3 /uL 0.02-0 .53 Not Available [facility] (Lab) [address] [place], [address], 05/28/2023 16:12:31 05/28/19 24 05/28/2023 CBC/C OMPLE TE BLD COUNT W/DIF F basophils, absolute count 0.02 x10'3 /uL 0.01-0 .08 Not Available [facility] (Lab) [address] [place], [address], 05/28/2023 16:12:31 05/28/19 24 05/28/2023 CBC/C OMPLE TE BLD COUNT W/DIF F immature granulocytes ,absolute 0.02 x10'3 /uL 0.00-0 .05 Not Available [facility] (Lab) [address] [place], [address], 05/28/2023 16:12:31 05/28/19 24 05/28/2023 CBC/C OMPLE TE BLD COUNT W/DIF F nucleated red blood cells 0.0 % -0 Not Available [facility] (Lab) [address] [place], [address], 05/28/2023 16:12:31 05/28/19 24 05/28/2023 CBC/C OMPLE TE BLD COUNT W/DIF F NRBC# 0.00 x10'3 /uL Not Available [facility] (Lab) [address] [place], [address], 05/28/2023 16:12:31 05/28/19 24 05/28/2023 COMPR EHENS DONNIE METAB OLIC PANEL sodium 140 mmol/ L 137-14 5 Not Available [facility] (Lab) [address] [place], [address], 05/28/2023 17:20:14 05/28/19 24 05/28/2023 COMPR EHENS DONNIE METAB OLIC PANEL potassium 4.0 mmol/ L 3.5-5. 1 Not Available [facility] (Lab) [address] [place], [address], 05/28/2023 17:20:14 05/28/19 24 05/28/2023 COMPR EHENS DONNIE METAB OLIC PANEL chloride 104 mmol/ L 98-107 Not Available [facility] (Lab) [address] [place], [address], 05/28/2023 17:20:14 05/28/19 24 05/28/2023 COMPR EHENS DONNIE METAB OLIC PANEL carbon dioxide 26 mmol/ L 22-30 Not Available [facility] (Lab) [address] [place], [address], 05/28/2023 17:20:14 05/28/19 24 05/28/2023 COMPR EHENS DONNIE METAB OLIC PANEL anion gap 14.0 mmol/ L 14-22 Not Available [facility] (Lab) [address] [place], [address], 05/28/2023 17:20:14 05/28/19 24 05/28/2023 COMPR EHENS DONNIE METAB OLIC PANEL glucose 101 mg/dL 70-99 high Not Available [facility] (Lab) [address] [place], [address], 05/28/2023 17:20:14 05/28/19 24 05/28/2023 COMPR EHENS DONNIE METAB OLIC PANEL BUN 10 mg/dL 8-19 Not Available [facility] (Lab) [address] [place], [address], 05/28/2023 17:20:14 05/28/19 24 05/28/2023 COMPR EHENS DONNIE METAB OLIC PANEL creatinine 0.93 mg/dL 0.66-1 .25 Not Available [facility] (Lab) [address] [place], [address], 05/28/2023 17:20:14 05/28/19 24 05/28/2023 COMPR EHENS DONNIE METAB OLIC PANEL GFR >60 Refer ence Range : [place] GFR Healt hy Adult : >60 mL/mi n/1.7 3 m2 Chron ic Kidne y Disea se: 15-60 mL/mi n/1.7 3 m2 Kidne y Failu re: <15/m L/min /1.73 m2 www.n iddk. nih.g ov The MDRD study equat ion has not been valid ated in child areli <18 years of age; pregn ant women ; the elder ly >85 years of age; or in some racia l or ethni c subgr oups, such as [facility] nics. Outsi de the valid ated lizzy eters , estim ated GFR is less accur ate, requi ring clini day judgm ent on a case- by-ca se basis . Clini day inter preta tion for other races and ages must be made by the clini coni. The MDRD study equat ion has not been valid ated for the evalu ation of serum creat inine relat ed to nutri adriana l statu s or medic ation usage . For perso ns <18 years of age, a pedia tric GFR calcu lator is avail able on the [facility] websi te: https :[email or web address] w.kid milton.o rg/pr ofess ional s/kdo qi/gf r_cal culat or Not Available [facility] (Lab) [address] [place], [address], 05/28/2023 17:20:14 05/28/19 24 05/28/2023 COMPR EHENS DONNIE METAB OLIC PANEL alkaline phosphatase 84 U/L 38-126 Not Available [facility] (Lab) [address] [place], [address], 05/28/2023 17:20:14 05/28/19 24 05/28/2023 COMPR EHENS DONNIE METAB OLIC PANEL alanine aminotransfe rase 21 U/L 0-50 Not Available [facility] (Lab) [address] [place], [address], 05/28/2023 17:20:14 05/28/19 24 05/28/2023 COMPR EHENS DONNIE METAB OLIC PANEL aspartate aminotransfe rase 26 U/L 15-46 Not Available [facility] (Lab) [address] [place], [address], 05/28/2023 17:20:14 05/28/19 24 05/28/2023 COMPR EHENS DONNIE METAB OLIC PANEL bilirubin, total 0.70 mg/dL 0.20-1 .30 Not Available [facility] (Lab) [address] [place], [address], 05/28/2023 17:20:14 05/28/19 24 05/28/2023 COMPR EHENS DONNIE METAB OLIC PANEL calcium 9.3 mg/dL 8.4-10 .2 Not Available [facility] (Lab) [address] [place], [address], 05/28/2023 17:20:14 05/28/19 24 05/28/2023 COMPR EHENS DONNIE METAB OLIC PANEL total protein 7.4 g/dL 6.3-8. 2 Not Available [facility] (Lab) [address] [place], [address], 05/28/2023 17:20:14 05/28/19 24 05/28/2023 COMPR EHENS DONNIE METAB OLIC PANEL albumin 4.5 g/dL 3.4-5. 0 Not Available [facility] (Lab) [address] [place], [address], 05/28/2023 17:20:14 05/28/19 24 05/28/2023 COMPR EHENS DONNIE METAB OLIC PANEL globulin 2.9 g/dL 2.6-4. 2 Not Available [facility] (Lab) [address] [place], [address], 05/28/2023 17:20:14 05/28/19 24 05/28/2023 COMPR EHENS DONNIE METAB OLIC PANEL A/G ratio 1.6 ratio 1.0-2. 0 Not Available [facility] (Lab) [address] [place], [address], 05/28/2023 17:20:14 05/28/1905/28/2023 LIPID PANEL cholesterol 113 mg/dL 140-19 9 low NIH CHELI NSUS RECOM MENDA TION FOR BALDEMAR STERO L: ADULT CHILD LOW RISK: <200 <170 BORDE RLINE : <200- 239 ----- HIGH RISK: >240 >200 Not Available [facility] (Lab) [address] [place], [address], 05/28/2023 17:20:23 05/28/1905/28/2023 LIPID PANEL triglyceride s 126 mg/dL 0-150 NIH CHELI NSUS REPOR T RECOM MENDA TION FOR TRIGL YCERI JUAQUIN: ADULT CHILD LOW RISK: <150 ----- BODER LINE: 150-1 99 ----- HIGH RISK: >200 ----- Not Available [facility] (Lab) [address] [place], [address], 05/28/2023 17:20:23 05/28/19 24 05/28/2023 LIPID PANEL HDL cholesterol 41 mg/dL 40- Not Available [facility] (Lab) [address] [place], [address], 05/28/2023 17:20:23 05/28/19 24 05/28/2023 LIPID PANEL LDL cholesterol, calculated 47 mg/dL 0-130 NIH CHELI NSUS REPOR T RECOM MENDA TIONS FOR LDL: ADULT CHILD LOW RISK <130 <110 (OPTI MAL LDL) <100 ----- BORDE RLINE : 130-1 59 ----- HIGH RISK: >160 >130 A TRIGL YCERI DE RESUL T >400 INVAL IDATE S THE CALCU LATIO N FOR LDL FRACT IONAT ION - THE LDL RESUL T WILL NOT BE REPOR AMARILYS. Not Available [facility] (Lab) [address] [place], [address], 05/28/2023 17:20:23 05/28/19 24 05/28/2023 T4 FREE free T4 0.87 NG/dL 0.78-2 .19 Not Available [facility] (Lab) [address] [place], [address], 05/28/2023 17:26:34 05/28/19 24 05/28/2023 T3 FREE free T3 3.9 pg/mL 2.77-5 .27 Not Available [facility] (Lab) [address] [place], [address], 05/28/2023 17:26:38 05/28/19 24 05/28/2023 TSH thyroid-stim ulating hormone 1.640 uIU/m L 0.465- 4.680 Not Available [facility] (Lab) [address] [place], [address], 05/28/2023 17:26:49 04/24/20 24 04/24/2024 XR, chest , 2 [facility] [address] [facility] [place] [address] Patien t Name: WILLIE MANDUJANO ion #: [id number] Sex: M : 1965 8 Dictat ed By: Aaron Martinez Attend ing Physic michelle: JE GARCIA Orderi ng Physic michelle: JE GARCIA Exam Date: 2023 15:23 PM Exam Name: XR CHEST 2V Admitt ing Diagno sis(es ): CHEST RADIOG RAPH Indica tion: cough Techni que: Fronta l and latera l view of the chest was obtain ed Compar nirav: None FINDIN GS: Lines and Tubes: None Lungs: Diffus e increa sed inters titial promin ence. Pleura : No effusi on. No pneumo thorax . Cardio medias tinal contou rs: Unrema rkable Bones: Unrema rkable IMPRES ELMA: Pulmon marielos vascul ar conges tion or viral pneumo nitis. Electr onical ly Signed by: Aaron Martinez at 2023 15:40: 36 PM Page 1 [email or web address] [facility] (Imaging) [address] [place], [address], 06/26/2024 14:47:29 Result Notes None recorded. Problems Name Problem SNOMED Code Status Onset Date Resolution Date Notes Provider Name and Address Organization Details Recorded Time Overweight 523349264 Active 2023 Not Available [facility] 4 04:01:52 Electrocardio gram abnormal 641270610 Active Not Available [facility] 4 04:01:52 Pain in throat 382644236 Active 2021 Not Available [facility] 4 04:01:52 Pure hypercholeste rolemia 982971091 Active Not Available [facility] 4 04:01:52 Umbilical hernia 892303389 Active Not Available [facility] 4 04:01:53 Obesity 416326569 Active 2021 Not Available [facility] 4 04:01:53 COVID-19 905619032 Active 2021 Not Available [facility] 04:01:53 Problem Notes None recorded. Procedures Surgical History Date Name Laterality Status Provider Name and Address Organization Details Recorded Time 11/28/19 23 Medicare Wellness CPT Code, subsequent completed Carrie Cadet RN [place] [facility] 11/27/2022 14:20:39 12/02/19 16 Colonoscopy with biopsy completed Not Available [facility] 07/19/2022 04:42:57 Eye Surgery completed Not Available [facility] 07/19/2022 04:42:57 Imaging Results Imaging Date Name Status LastModified by Organiz ation Details LastModified Time 04/24/2024 XR, chest, [address] (Imaging) [address] [place], [address], 06/26/2024 14:47:29 Procedure Notes None recorded. Medical Equipment None Reported. Allergies No known drug allergies Medications Name Sig Start Date Stop Date Status Note LastModified by Organization Details LastModified Time amoxicillin 500 mg capsule 09/25 completed Not Available Not Available Not Available azithromyci n 250 mg tablet 2 pills first day , then 1 daily till completed 05/29 completed Not Available Not Available Not Available acetazolami de 250 mg tablet 09/29 completed Not Available Not Available Not Available amoxicillin 500 mg tablet Take 1 tablet 3 times a day by oral route for 10 days. 09/25 completed Not Available Not Available Not Available ketorolac 0.5 % eye drops 09/29 completed Not Available Not Available Not Available prednisolon e acetate 1 % eye drops,suspe nsion 09/29 completed Not Available Not Available Not Available dorzolamide 22.3 mg-timolol 6.8 mg/mL eye drops 09/29 completed Not Available Not Available Not Available amoxicillin 875 mg-potassiu m clavulanate 125 mg tablet 02/12 completed Not Available Not Available Not Available rosuvastati n 10 mg tablet TAKE 1 TABLET BY MOUTH DAILY active Not Available Not Available No t Available Crestor 20 mg tablet ONE TABLET QD 02/12 completed Not Available Not Available Not Available ketorolac 0.4 % eye drops 09/29 completed Not Available Not Available Not Available GaviLyte-N 420 gram oral solution 04/04 completed Not Available Not Available Not Available Fluvirin 1611-1130 45 mcg (15 mcg x 3)/0.5 mL intramuscul ar suspension active Not Available Not Available N ot Available Wegovy 0.25 mg/0.5 mL subcutaneou s pen injector inject 0.25mg weekly for 4wks then go to 0.5mg weekly for 4wks 2023 active Not Available Not Available Not Avai lable Paxlovid 300 mg (150 mg x 2)-100 mg tablets in a dose pack Take 3 tablets twice a day by oral route for 5 days. active Not Available Not Available No t Available Vitals Date Recorded Body mass index (BMI) Body height Heart rate Body temperature Body weight Systolic blood pressure Diastolic blood pressure Provider Name and Address Organization Details Last Updated DateTime 1 36.2 kg/m2 162.56 cm 60 /min 97.6 [degF] 79634.9 9 g 122 mm[Hg] 80 mm[Hg] Not Available [facility] 3 04:44:51 Date Recorded Body mass index (BMI) Body height Heart rate Body temperature Body weight Systolic blood pressure Diastolic blood pressure Provider Name and Address Organization Details Last Updated DateTime 2 36.9 kg/m2 162.56 cm 62 /min 98.5 [degF] 77591.3 6 g 120 mm[Hg] 70 mm[Hg] Not Available [facility] 3 04:44:51 Date Recorded Body mass index (BMI) Body height Heart rate Body temperature Body weight Systolic blood pressure Diastolic blood pressure Provider Name and Address Organization Details Last Updated DateTime 3 36.6 kg/m2 162.56 cm 76 /min 97.9 [degF] 70418.1 7 g 126 mm[Hg] 82 mm[Hg] Not Available [facility] 3 04:44:51 Date Recorded Body height Body mass index (BMI) Body weight Body temperature Heart rate Oxygen saturation Oxygen saturation in Arterial blood by Pulse oximetry Systolic blood pressure Diastolic blood pressure Provider Name and Address Organization Details Last Updated DateTime 3 162.56 cm 38.8 kg/m2 942547. 88 g 98.3 [degF] 78 /min 98 % 98 % 128 mm[Hg] 78 mm[Hg] Nella Laguna RN [facility] [employer] 3 14:04:34 Date Recorded Body height Body mass index (BMI) Body weight Body temperature Heart rate Systolic blood pressure Diastolic blood pressure Provider Name and Address Organization Details Last Updated DateTime 4 162.56 cm 37.6 kg/m2 56278.7 3 g 98.2 [degF] 74 /min 136 mm[Hg] 88 mm[Hg] ZACK Walsh [place] - [facility] [employer] 4 11:04:36 Social History Question Answer Notes LastModified by Organization Details LastModified Time Tobacco Smoking Status Never Smoker Not Available [employer] 07/19/2022 04:13:16 Do You Have An Advance Directive? No MIGRATION.0301 [id number] Information not available 07/19/2022 What Is Your Level Of Alcohol Consumption? None MIGRATION.0301 311589 Information not available 07/19/2022 Do You Wear A Helmet When Biking? Yes MIGRATION.0301 560621 Information not available 07/19/2022 What Is Your Level Of Caffeine Consumption? Heavy MIGRATION.0301 673504 Information not available 07/19/2022 How Much Tobacco Do You Chew? None MIGRATION.0301 197764 Information not available 07/19/2022 In The 14 Days Before Symptom Onset, Have You Had Close Contact With A Laboratory-conf irmed COVID-19 While That Case Was Ill? No MIGRATION.0301 [id number] Information not available 07/19/2022 In The 14 Days Before Symptom Onset, Have You Had Close Contact With A Person Who Is Under Investigation For COVID-19 While That Person Was Ill? No MIGRATION.0301 [id number] Information not available 07/19/2022 What Type Of Diet Are You Following? REGULAR MIGRATION.0301 153958 Information not available 07/19/2022 Which Illicit Or Recreational Drugs Have You Used? None MIGRATION.0301 047555 Information not available 07/19/2022 Do You Or Have You Ever Used E-cigarettes Or Vape? Never Used Electronic Cigarettes MIGRATION.0301 238039 Information not available 07/19/2022 What Is The Highest Grade Or Level Of School You Have Completed Or The Highest Degree You Have Received? CE84098-0 MIGRATION.030 398665 Information not available 07/19/2022 What Is Your Occupation? Disabled MIGRATION.030 421878 Information not available 07/19/2022 Have There Been Any Changes To Your Family Or Social Situation? No MIGRATION.030 725634 Information not available 07/19/2022 What Is The Fluoride Status Of Your Home? Unknown MIGRATION.030 434364 Information not available 07/19/2022 Are There Any Guns Present In Your Home? Yes MIGRATION.0301 812686 Information not available 07/19/2022 Do You Use Insect Repellent Routinely? No MIGRATION.030 418084 Information not available 07/19/2022 Where Do You Live? SingleLevelHouse MIGRATION.030 624424 Information not available 07/19/2022 Presence Of Domestic Violence No [email or web address] Information not available 11/27/2022 Are You Able To Care For Yourself? Yes Information not available 11/27/2022 Are You Blind Or Do Yo Have Difficulty Seeing? No Has Had Eye Lens Implants [email or web address] Information not available 11/27/2022 General Stress Level? Low Information not available 11/27/2022 Live Alone Of With Others? With Others [email or web address] Information not available 11/27/2022 Do You Have A Medical Power Of Cpht? No MIGRATION.0301 970055 Information not available 07/19/2022 What Was The Date Of Your Most Recent Tobacco Screening? 05/28/2023 [email or web address] Information not available 05/28/2023 Do You Have Any Pets? Yes MIGRATION.0301 296558 Information not available 07/19/2022 What Is Your Relationship Status? Single MIGRATION.0301 778757 Information not available 07/19/2022 Do You Use Your Seat Belt Or Car Seat Routinely? Yes MIGRATION.0301 662297 Information not available 07/19/2022 Do You Have Smoke And Carbon Monoxide Detectors In Your Home? Yes MIGRATION.0301 319130 Information not available 07/19/2022 Are You Passively Exposed To Smoke? No MIGRATION.0301 614053 Information not available 07/19/2022 Do You Or Have You Ever Used Smokeless Tobacco? Never Used Smokeless Tobacco MIGRATION.0301 972199 Information not available 07/19/2022 Are There Any Smokers In Your House? No MIGRATION.0301 293507 Information not available 07/19/2022 How Much Tobacco Do You Smoke? No MIGRATION.0301 346391 Information not available 07/19/2022 What Types Of Sporting Activities Do You Participate In? None MIGRATION.0301 650174 Information not available 07/19/2022 Do You Feel Stressed (tense, Restless, Nervous, Or Anxious, Or Unable To Sleep At Night)? [id number] MIGRATION.0301 412250 Information not available 07/19/2022 Do You Use Any Illicit Or Recreational Drugs? No MIGRATION.0301 214905 Information not available 07/19/2022 Do You Use Sunscreen Routinely? No MIGRATION.0301 933296 Information not available 07/19/2022 Has Tobacco Cessation Counseling Been Provided? No Not Needed-nev er Smoked MIGRATION.030 099814 Information not available 07/19/2022 How Many Years Have You Smoked Tobacco? 0 MIGRATION.030 357979 Information not available 07/19/2022 Have You Recently Traveled Abroad? No MIGRATION.0301 094410 Information not available 07/19/2022 Do You Have Any Dietary Restrictions? No MIGRATION.0301 101035 Information not available 07/19/2022 Do You Or Have You Ever Used Any Other Forms Of Tobacco Or Nicotine? No MIGRATION.0301 536415 Information not available 07/19/2022 Sex: Male Functional Status Question Answer Note LastModified by Organizat ion Details LastModified Time What is your exercise level? Moderate MIGRATION.[id number] Information not available 07/19/2022 Mental Status None recorded. Family History Relationship Description Onset Age of this Age Resolved Age Notes LastModified by Organization Details LastModified Time Mother Malignant tumor of breast 70 MIGRATION.809 [id number] Not available 07/19/2022 04:42:59 Sister Legal blindness MIGRATION.086 [id number] Not available 07/19/2022 04:42:59 Medical History Condition Response NERVE DISEASE N BLINDNESS N RHEUMATIC FEVER N KIDNEY STONES N BLADDER PROBLEMS N MRSA N OTHER # 1 Y POLIO N LUNG DISEASE/DISORDER N RADIATION / CHEMOTHERAPY N COPD N Other # 2 N BLOOD DISEASES N EAR OR HEARING PROBLEMS N MUMPS N BOWEL PROBLEMS N DEPRESSION (INCLUDING POST ) N STROKE/TIA N ULCERS N BENIGN PROSTATIC HYPERPLASIA N MEASLES N MYOCARDIAL INFARCTION N OBESITY N GERD/NAUSEA N ANEURYSM N URINARY/BLADDER/KIDNEY PROBLEMS N CORONARY ARTERY DISEASE (CAD) N ADDICTION CONCERNS N Impotence N ENDOMETRIOSIS N USE OF BLOOD THINNERS N SKIN PROBLEMS N GASTROINTESTINAL DISORDER N PERIPHERAL VASCULAR DISEASE N MUSCLE,JOINT OR BONE PROBLEMS N GASTROINTESTINAL BLEEDING N BLOOD CLOTS N ASTHMA N CATARACTS N ERECTILE DYSFUNCTION N VARICOSITIES N GI PROBLEMS N Low Testosterone N INFERTILITY N AIDS/HIV N CHEMOTHERAPY / RADIATION N LIVER DISEASE N MALE HYPOGONADISM N HYPERTENSION N Deficiency N TOURETTE'S N ANXIETY DISORDER N BLOOD TRANSFUSION N ANEMIA/BLOOD DISORDER N CHRONIC EAR INFECTIONS N BRONCHITIS N TUBERCULOSIS N GLAUCOMA N FOOT PROBLEM N DIVERTICULITIS N SLEEP APNEA N CHICKENPOX N INFECTIOUS DISEASE N PROSTATE N HEART ARRHYTHMIA N INSOMNIA N HIGH CHOLESTEROL / HYPERLIPIDEMIA Y EYE PROBLEMS N HYPERTHYROIDISM N EDEMA N CHRONIC PAIN SYNDROME N HYPOTHYROIDISM N CONSTIPATION N CAROTID BLOCKAGE N BACK / NECK PROBLEMS N HAVE YOU BEEN HOSPITALIZED OR SEEN IN [facility] IN THE PAST YEAR ? N ATHEROSCLEROSIS N BREAST PROBLEMS N DIALYSIS N ECZEMA N OSTEOPOROSIS N ARTHRITIS N APPENDICITIS N DIABETES, TYPE N BAD TEETH N ENT N HEARTBURN / REFLUX N AUTISM SPECTRUM DISORDER (ASD) N HEPATITIS / LIVER DISEASE N GOUT N SLEEP DISORDER N ALZHEIMER'S DISEASE N Brain Problems N DEMENTIA N HERPES N SEIZURES/EPILEPSY N HEADACHES/MIGRAINES N VASCULAR DISEASE N PACEMAKER N Blood Disorder N DIZZINESS N HEART DISEASE/HEART PROBLEMS N KIDNEY DISEASE N MULTIPLE SCLEROSIS N CANCER: SPECIFY N CARDIAC ARRHYTHMIA N ATRIAL FIBRILLATION N Gall Stones N PULMONARY EMBOLISM N AUTOIMMUNE DISEASE N Immunizations Vaccine Type Date Status Note Provider Nam e and Address Organization Details Recorded Time COVID-19, mRNA, LNP-S, PF, 100 mcg/0.5mL dose or 50 mcg/0.25mL dose 1 completed Not Available [facility] 06/07/2023 04:01:53 COVID-19, mRNA, LNP-S, PF, 100 mcg/0.5mL dose or 50 mcg/0.25mL dose 1 completed Not Available [facility] 06/07/2023 04:01:53 Influenza, split virus, trivalent, preservative 4 completed Not Available [facility] 06/07/2023 04:01:53 Influenza, split virus, quadrivalent, PF 6 completed Not Available [facility] 06/07/2023 04:01:53 Past Encounters Encounter ID Performer Location Encounter Start Date Encounter Closed Date Diagnosis/Indication Diagnosis SNOMED-CT Code Diagnosis ICD10 Code Diagnosis Note [id number] Yvonne Garcia MD [facility] Internal Med [facility] [address] [place] [address] [id number] 1 11/01/2020 00:00:00 11/01/2020 21:53:55 [id number] [facility] Internal Med [address] [id number] 1 05/02/2021 00:00:00 05/21/2021 22:42:37 [id number] [address] [facility] Internal Med [facility] [address] [place] [address] [id number] 1 11/07/2021 00:00:00 11/13/2021 18:27:56 [id number] Yvonne Garcia MD [facility] Internal Med [facility] [address] [place] [address] [id number] 1 05/29/2022 00:00:00 05/30/2022 21:40:41 [id number] [facility] Internal Med [facility] [address] [place] [address] [id number] 1 11/27/2022 13:45:54 11/27/2022 14:40:25 Adult health examination 584937045 Z00.00 Screening for disorder 060021071 Z13.9 Pure hypercholesterolemia 875913082 E78.00 Screening for malignant neoplasm of prostate 188398061 Z12.5 Obesity 757213537 E66.9 [id number] Yvonne Garcia MD [facility] Internal Med [facility] [address] [place] [address] [id number] 1 05/28/2023 10:34:37 05/28/2023 12:41:35 Pure hypercholesterolemia 752087767 E78.00 Overweight 421465715 E66 .3 Umbilical hernia 2296704 07 K42.9 Health Concerns Section Related Observation LastModified by Organization Detai ls LastModified Time None Recorded Concern Status LastModified by Organization Details LastModified Time None Recorded Advance Directives Directive N: Payers Encounter Date Sequence Insurance Name Policy Number Policy Powell Covered Member ID Powell Member ID Guarantor Name 11/27/2022 1 [facility] [place] [facility] (MEDICARE - MEDICAID REPLACEMENT HMO) [id number] Willie Feranndez Mandujano [id number] Willie Fernandez Mandujano 05/28/2023 1 [facility] [place] [employer] (MEDICARE - MEDICAID REPLACEMENT HMO) [id number] Willie Fernandez Mandujano [id number] Willie Fernandez Mandujano Notes Date Note Type Note Provider Name and Address Organization Details Recorded Time 11/27/2022 text/html obesity not losi ng weight dyslipidemia taking his medication without any side effects umbilical hernia stable Yvonne Garcia MD [address], [place], [address], [email or web address] 11/27/2022 14:46:22 05/28/2023 text/html obesity not losi ng weight dyslipidemia taking his medication without any side effects umbilical hernia stable Yvonne Garcia MD [address], [place], [address], [employer] 05/28/2023 14:00:39
[2024-09-18 08:46] VITALS: BP 154/82; PULSE 80; RESP 18; TEMP 36.7; O2SAT 100
[2024-09-18] MEDS: LACTATED RINGERS 1,000 ML 150 ML IV CONT (09:01)
--- NOTE | 2024-09-18 09:49 | PM.IMHP ---
H&P: HPI History of Present Illness Date/Time: 09/18/24 09:49 Chief Complaint: Screening colonoscopy Narrative: This is the patient's first colonoscopy. There are no GI symptoms and there is no family history of colorectal cancer. Review of Systems Review of Systems: All systems reviewed & are unremarkable except as noted in HPI and below [facility] Past Medical History Medical History (Updated 09/18/24 @ 09:49 by Wang Jenkins MD) Hyperlipidemia Social History Social History Living arrangements: with family Spiritual care concerns: No Meds Home Medications and Allergies Home Medications ?Medication ?Instructions ?Recorded ?Confirmed ?Type rosuvastatin 10 mg tablet 10 mg PO DAILY 09/11/24 09/18/24 History Allergies Allergy/AdvReac Type Severity Reaction Status Date / Time No Known Allergies Allergy Verified 09/18/24 08:44 Vital Signs Vital Signs - 24 hr 09/18/24 08:46 Temperature 98.1 F Pulse Rate 80 Respiratory Rate 18 Blood Pressure 154/82 H Pulse Oximetry 100 Oxygen Delivery Room Air Exam Const: General: cooperative and healthy appearing Resp: Effort & Inspection: normal respiratory effort and able to speak in complete sentences Auscultation: clear to auscultation bilaterally Cardio: Rate: regular rate Rhythm: regular rhythm GI: Inspection: normal to inspection GI Palp: No No hepatosplenomegaly present Auscultation: normal bowel sounds Rectal Exam: deferred Skin: General skin exam: normal color Psych: Appearance: grossly normal Mental Status: mental status grossly normal Assessment and Plan Assessment and plan (1) Encounter for screening colonoscopy: Code(s): Z12.11 - Encounter for screening for malignant neoplasm of colon Status: Acute Assessment and Plan: The patient is deemed a good candidate for the procedure. Consent signed. Will proceed.
[2024-09-18 10:18] VITALS: BP 112/77; PULSE 69; RESP 16; O2SAT 95
[2024-09-18 10:28] VITALS: BP 111/75; PULSE 84; RESP 19; O2SAT 97
[2024-09-18 10:38] VITALS: BP 133/86; PULSE 80; RESP 28; O2SAT 97
== END 2024-09-18 10:51 | disposition home or self-care (01) ==
PROVIDERS: PCP Internal Medicine; Referring Provider Internal Medicine; Visit Provider Internal Medicine Gastroenterology
PROC: 0DJD8ZZ Inspection of Lower Intestinal Tract, Via Natural or Artificial Opening Endoscopic (ICD-10-PCS; CPT 45378; principal; 2024-09-18 10:00)
DX: Z12.11 Encounter for screening for malignant neoplasm of colon (principal); K57.30 Diverticulosis of large intestine without perforation or abscess without bleeding
CPT/HCPCS: G0121; J2003; J2704; J7120